=== PATIENT | female | born 1965 | race Caucasian/White ===

== ENCOUNTER 2016-04-23 06:15 | Day surgery (SDC) | payer OTHER ==
[~2016-04-23] VITALS: Ht 162.6 cm; Wt 90.6 kg
[2016-04-23] MEDS ORDERED: PROPOFOL 20 ML ONE ×2 (07:38→07:39)
[2016-04-23] MEDS ORDERED: MIDAZOLAM 1 MG/ML 2 ML INJ ONE (07:39)
[2016-04-23 07:46] VITALS: Ht 162.6 cm; Wt 90.6 kg
[2016-04-23] MEDS ORDERED: LEVO25TA50 PO (07:52)
[2016-04-23] MEDS ORDERED: FENTAnyl 50 MCG/ML VIAL ONE (07:53)
[2016-04-23 08:00] VITALS: BP 109/67; PULSE 73; RESP 24
[2016-04-23 09:10] VITALS: BP 99/63; PULSE 60; RESP 14
--- NOTE | 2016-04-24 05:29 | GILP ---
DATE OF PROCEDURE: 04/23/2016 NAME OF PROCEDURES: 1. Esophagogastroduodenoscopy and biopsy. 2. Colonoscopy. SURGEON: Shaggy Knox MD PREOPERATIVE DIAGNOSES: 1. Abdominal pain. 2. Screening colonoscopy. POSTOPERATIVE DIAGNOSES: 1. Small hiatal hernia. 2. Gastroesophageal reflux disease. 3. Gastritis with erosions. 4. Biopsy was positive for Helicobacter pylori infection. 5. Colonoscopy all the way to the cecum. 6. Internal hemorrhoids. 7. No colon neoplasm was identified. INDICATION FOR THE PROCEDURE: Ms. Arnav Martinez is a 50-year-old female patient who had upper a bdominal pain, not responding to therapy. She also needed screening colonoscopy. The procedures and possible complications are well explained to the patient, she understood and cons ented to the procedure. DESCRIPTION OF PROCEDURE: Under the influence of anesthesia, the gastroscope was carefully introduc ed into the esophagus and under direct vision, it was advanced to the stomach and through the pyloru s into the duodenal bulb and descending duodenum. FINDINGS: ESOPHAGUS: The patient had gastroesophageal reflux disease and small hiatal hernia. STOMACH: She had gastritis with erosions and biopsy was positive for Helicobacter pylori infection. DUODENUM: Normal. The colonoscope was carefully introduced in the rectum and under direct vision, it was advanced all the way to the cecum. FINDINGS: The patient had internal hemorrhoids. No colon neoplasm was identified. The patient tolerated the procedures very well and there was no complication from the procedures. A t the end of the procedures, she was awake with stable vital signs and she was discharged home to [facility] care of her family. IMPRESSION: 1. Small hiatal hernia. 2. Gastroesophageal reflux disease. 3. Gastritis with erosions. 4. Biopsy was positive for Helicobacter pylori infection. 5. Colonoscopy all the way to the cecum. 6. Internal hemorrhoids. 7. No colon neoplasm was identified. PLAN: 1. Pantoprazole 40 mg p.o. b.i.d. 2. Doxycycline 100 mg p.o. b.i.d. 3. Flagyl 500 mg p.o. b.i.d. 4. Pepto-Bismol 2 tablets p.o. q.i.d. All these 4 medications for 14 days for H. pylori infection. 5. Screening colonoscopy in 10 years. Dictated By: SHAGGY CLAY/CHADD Conf#: [id number] [facility]#: [id number]
== END 2016-04-23 11:58 | disposition home or self-care (01) ==
LOC: GIL 06:15
PROVIDERS: ATTEND Internal Medicine Gastroenterology
DX: Z12.11 Encounter for screening for malignant neoplasm of colon (principal); E03.9 Hypothyroidism, unspecified; E66.9 Obesity, unspecified; Z68.34 Body mass index [BMI] 34.0-34.9, adult; K44.9 Diaphragmatic hernia without obstruction or gangrene; K21.9 Gastro-esophageal reflux disease without esophagitis; K29.70 Gastritis, unspecified, without bleeding; A04.8 Other specified bacterial intestinal infections; K64.8 Other hemorrhoids; R10.10 Upper abdominal pain, unspecified
CPT/HCPCS: 43239; 45378; J2250; J3010